=== PATIENT | male | born 1975 | race Caucasian/White ===

== ENCOUNTER 2019-11-13 09:33 | Outpatient (REF) | payer OTHER, SELFPAY ==
[2019-11-13 23:10] LABS: ALT 77 U/L (16-63); AST 33 U/L (15-37); Albumin 4.4 g/dL (3.4-5.0); Alkaline Phosphatase 84 U/L (46-116); Anion Gap 9.4 mmol/L (3-11); BUN 14 mg/dL (7-18); Bilirubin, Total 0.4 mg/dL (0.2-1.0); CO2 26.6 mmol/L (21.0-32.0); CREATININE 0.88 mg/dL (0.70-1.30); Calculated LDL 122 mg/dL (<100); Chloride 104 mmol/L (98-107); Cholesterol 187 mg/dL (<200); Glucose 110 mg/dL (74-106); HDL Cholesterol 43 mg/dL (40-60); Potassium 4.5 mmol/L (3.5-5.1); Sodium 140 mmol/L (136-145); Triglyceride 110 mg/dL (<150)
[2019-11-14 00:12] LABS: Total Protein 7.7 g/dL (6.4-8.2)
== END 2019-11-13 09:53 ==
LOC: NCHCN 09:33
PROVIDERS: PCP Family Medicine; Visit Provider Family Medicine
DX: E78.5 Hyperlipidemia, unspecified (principal); E66.3 Overweight
CPT/HCPCS: 80053; 80061

== ENCOUNTER 2020-11-06 10:29 | Outpatient (REF) | payer OTHER, SELFPAY ==
[2020-11-06 14:33] LABS: ALT 60 U/L (16-63); AST 23 U/L (15-37); Albumin 4.2 g/dL (3.4-5.0); Alkaline Phosphatase 93 U/L (46-116); Anion Gap 6.7 mmol/L (3-11); BUN 13 mg/dL (7-18); Bilirubin, Total 0.5 mg/dL (0.2-1.0); CO2 30.3 mmol/L (21.0-32.0); CREATININE 0.9 mg/dL (0.70-1.30); Calcium 8.9 mg/dL (8.5-10.1); Calculated LDL 94 mg/dL (<100); Chloride 105 mmol/L (98-107); Cholesterol 150 mg/dL (<200); Glucose 97 mg/dL (74-106); HDL Cholesterol 43 mg/dL (40-60); Potassium 4.6 mmol/L (3.5-5.1); Sodium 142 mmol/L (136-145); Total Protein 7.8 g/dL (6.4-8.2); Triglyceride 68 mg/dL (<150)
== END 2020-11-06 10:30 | disposition home or self-care (01) ==
LOC: NCHCN 10:29
PROVIDERS: PCP Family Medicine; Visit Provider Family Medicine
DX: E78.5 Hyperlipidemia, unspecified (principal); E66.3 Overweight; R03.0 Elevated blood-pressure reading, without diagnosis of hypertension
CPT/HCPCS: 80053; 80061

== ENCOUNTER 2021-06-18 00:50 | Outpatient (CLI) | payer OTHER, SELFPAY ==
--- NOTE | 2021-06-18 | DI.CT_ITS ---
Exam(s) CT NECK W EXAM: CT NECK W CLINICAL HISTORY: NECK MASS, R22.1. TECHNIQUE: Imaging Protocol: Axial computed tomography images with coronal and sagittal reformatted images were created and reviewed. CONTRAST MATERIAL: Intravenous: Omnipaque 350 Contrast volume:100 ml contrast route:IV - COMPARISON: No exams were available for comparison FINDINGS: A BB marker was placed over the area of concern at the junction of the left neck with the shoulder. No abnormalities seen. There is no evidence of adenopathy. There is no visible skin thickening. Orbits and orbital soft tissues: Within normal limits. Visualized paranasal sinuses: Within normal limits. Mastoid air cells: Within normal limits. Nasopharynx: Within normal limits. Oropharynx: Within normal limits. Hypopharynx: Within normal limits. Larynx: Within normal limits. Retropharyngeal space: Within normal limits. Parotids/submandibular: Within normal limits. Thyroid gland: Within normal limits. Lymphadenopathy: There is scattered lymph nodes seen along the level one to level three all measurin g less than 8 mm in short axis diameter which are physiologic in nature. Trachea: Within normal limits. Lung apices: Within normal limits. Bones: Within normal limits. Carotids/Jugular: Within normal limits. Soft tissues: Within normal limits. IMPRESSION: Normal CT scan of the neck. No visible mass in the area of concern. RADIATION DOSE DELIVERED: 406.14mGy.cm Total DLP 406.14mGy.cm Total DLP DATA REPOSITORY: All CT scans at this facility are submitted to the National Radiology Data Registry (NRDR) Dose Index Registry (DIR) with the [employer] (ACR). RADIATION OPTIMIZATION: All CT scans at this facility use at least one of these dose optimization te chniques: automated exposure control; mA and/or kV adjustment per patient size (includes targeted exa ms where dose is matched to clinical indication); or iterative reconstruction.
[2021-06-18] MEDS: Omnipaque 350 MG/ML 100 ML BTL IJ (08:52)
[2021-06-18] MEDS: Normal Saline Flush 10 ML SYR IVP (08:53)
== END 2021-06-18 01:10 ==
PROVIDERS: PCP Family Medicine; Visit Provider Family Medicine
DX: R22.1 Localized swelling, mass and lump, neck (principal)
CPT/HCPCS: 70491; J3490

== ENCOUNTER 2021-11-14 18:54 | Outpatient (REF) | payer OTHER, SELFPAY ==
[2021-11-14 20:35] LABS: ALT 74 U/L (16-63); AST 27 U/L (15-37); Albumin 4.4 g/dL (3.4-5.0); Alkaline Phosphatase 93 U/L (46-116); Anion Gap 9.2 mmol/L (3-11); BUN 17 mg/dL (7-18); Bilirubin, Total 0.3 mg/dL (0.2-1.0); CO2 27.8 mmol/L (21.0-32.0); CREATININE 0.8 mg/dL (0.70-1.30); Calcium 9.4 mg/dL (8.5-10.1); Chloride 102 mmol/L (98-107); Estimated GFR 111.22 (mL/min/1.73m2); Glucose 92 mg/dL (74-106); Potassium 4.5 mmol/L (3.5-5.1); Sodium 139 mmol/L (136-145); Total Protein 8.1 g/dL (6.4-8.2)
[2021-11-14 21:39] LABS: Calculated LDL 137 mg/dL (<100); Cholesterol 207 mg/dL (<200); HDL Cholesterol 51 mg/dL (40-60); Triglyceride 97 mg/dL (<150)
== END 2021-11-14 18:55 | disposition home or self-care (01) ==
LOC: NCHCN 18:54
PROVIDERS: PCP Family Medicine; Visit Provider Family Medicine
DX: E78.5 Hyperlipidemia, unspecified (principal)
CPT/HCPCS: 80053; 80061

== ENCOUNTER 2023-01-01 07:02 | Day surgery (SDC) | payer OTHER, SELFPAY ==
--- NOTE | 2022-12-31 12:31 | W.COLOREPORT ---
Date of service: 01/01/23 Time of Service: 08:59 Colonoscopy Report Date of procedure: 01/01/23 Pre-op diagnosis general: Colorectal cancer screening Post-op diagnosis procedure note: other (Small diverticula of the sigmoid colon/large colon polyp) Surgeon: Loreto Cameron Anesthesia Type: MAC Estimated blood loss (mL): 2 Pathology: other Complications: None Disposition: same day Prep: Miralax/Dulcolax Retraction Time: 11 Procedure Description: After informed consent was obtained the patient was taken to the procedure room and placed in a left decubitous position. Monitors were applied and a time out was done. The patients name, date of , procedure, allergies to medications and metal in their body was reviewed. The patient was then sedated. Once sedated and comfortable a rectal exam was done. External exam was normal. Internal exam revealed a normal sphincter tone and no palpable masses. The prostate normal. The scope was then introduced and retrofelexed. No internal hemorrhoids were identified. The scope was then advanced to the cecum without difficulty. The TI and appendiceal orifice were identified. The prep was BBPS 3 in all segments for a total of 9. The scope was then slowly retracted over 11 minutes back into the rectum. He has minor diverticula confined to the sigmoid. There is no signs of active bleeding or infection. the diverticula are very small in size. He has a large 2 cm polyp on a long thin stalk at 30 cm. This is removed with a hot snare. A clip was placed across the stalk. All specimen is retrieved and no bleeding is noted. The scope was removed and the patient was woken up and taken back to Same day surgery in stable condition. The patient tolerated the procedure well and there were no immediate complications. Follow up: The patient should follow up in ~2 years unless they develop changes in bowel habits or other new gastrointestinal complaints.
--- NOTE | 2022-12-31 12:32 | PDOC.DSDIS_ITS ---
Date of service: 01/01/23 Time of Service: 09:04 Discharge Plan Disposition Patient Disposition: Home Condition: Good Discharge Details Reason For Visit: Colon cancer screening Attending Provider: Loreto Cameron Primary Care Provider: Joelle Horton Home Meds and New Rx's Prescriptions: Continued lisinopril 10 mg tablet 10 mg PO DAILY atorvastatin [Lipitor] 20 mg tablet 20 mg PO QPM cholecalciferol (vitamin D3) 10 mcg (400 unit) capsule 10 mcg PO DAILY Discontinued bisacodyl [Dulcolax (bisacodyl)] 5 mg tablet,delayed release (DR/EC) 5 mg PO ONCE Qty: 4 0RF Rx Instructions: Take per colonoscopy instructions provided by ordering providers office polyethylene glycol 3350 17 gram/dose powder 17 g PO ONCE Qty: 238 0RF Rx Instructions: Take per colonoscopy instructions provided by ordering providers office Discharge Instructions Additional Instructions: DSU Colonoscopy Post- Op Instructions Instructions for Everyone who is given Anesthesia: For your safety, please do the following for the next twenty-four (24) hours: *Do Not operate a motor vehicle (car, truck, motorcycle, etc.) *Do Not drink alcoholic beverages or use any recreational drugs for the first 24 hours or while taking pain medications. The medications in your body may have a reaction that can be dangerous. *Do Not make any important decisions or sign any important papers. Findings: diverticula-make sure you are moving your bowels on a regular basis and not straining to go to the bathroom. If you find you are having issues with chronic constipation/straining, then it is recommended you start a fiber product such as Metamucil. Large polyp Follow up: Repeat colonoscopy in 1 to 2 years time, pathology pending. My office will send a letter in 2 to 3 weeks time with the results of the pathology and when we want you to repeat the colonoscopy. 1. No lifting over 20 pounds or strenuous activity for the first 24 hours after your procedure. After 24 hours there are no restrictions on your activity but you may feel fatigued for a few days. 2. After you arrive home you may have a light meal and return to your normal diet as you can tolerate it without feeling sick to your stomach. 3. You may have a bloated, gaseous feeling in your belly (abdomen) after a colonoscopy. Passing gas and belching will help. Walking or lying down on your left side with your knees flexed may relieve the discomfort. Call the office at [phone] (Office) or [phone] (Hospital) right away if you notice any of the following: a.Vomiting of blood or ?coffee ground stools?. b.Rectal bleeding 1Tbsp, blood clots or continuous bleeding. c.Severe belly (abdominal) pain. d.A hard distended belly (abdomen) and an inability to pass gas. 4. Please don?t expect to have a normal BM (bowel movement) for 2-3 days after your procedure. 5. If there are questions regarding the findings of your procedure, please contact your doctor 6. If you are unable to contact your doctor with a problem, contact the hospital at [phone]. 7. Continue all your regular medications unless directed otherwise. I understand the above instructions and have no questions. Signature of Patient or Adult Escort Name of Responsible Adult Escort Signature of Nurse Date/Time Activity:: See above Diet:: See above Discharge Orders Discharge Orders: Discharge Order (Routine); Ordered 01/01/23 Ordered By: Loreto Cameron DS: Diagnosis Discharge Diagnosis (1) Screening for malignant neoplasm of colon performed: Status: Acute Asessment and Plan: The patient is seen and examined after their colonoscopy.? The patient has been able to pass gas.? They are not having abdominal pain.? They have been able to tolerate liquids and a snack.? They do not have any nausea or vomiting.? They are not having any chest pain or shortness of breath.??? They are not having any rectal bleeding. Their vital signs have been stable-see nursing notes. We discussed findings during their colonoscopy, and any biopsies that were done /polyps that were removed. The patient will be sent a letter with any biopsy results, and when to repeat the colonoscopy.-see discharge instructions. Patient was given explicit instructions to follow-up regarding colonoscopy-refer to discharge instructions.? We reviewed resumption of medications. Patient verbalized understanding and discharged in stable and satisfactory condition- See nursing notes. (2) Diverticula of colon: Status: Acute (3) Adenomatous polyps: Status: Acute
[2023-01-01 07:25] VITALS: BP 137/96; PULSE 90; RESP 16; TEMP 36.5; O2SAT 98
[2023-01-01] MEDS: Lactated Ringers 1,000 ML 80 ML IV (07:43)
--- NOTE | 2023-01-01 08:18 | ANES.PREOP_ITS ---
General Info Date of Service Date Performed: 01/01/23 Height: 5 ft 10 in Weight: 99.5 kg Body Mass Index (BMI): 31.4 Surgical Procedure: Operation Date: 01/01/23 08:20 Proposed Procedure Side Surgeon sarwat Cameron, DO Meds Allergies and Home Medications Allergies Allergy/AdvReac Type Severity Reaction Status Date / Time No Known Allergies Allergy Unverified 01/01/23 07:22 Home Medication Medication Instructions Recorded atorvastatin 20 mg tablet (Lipitor) 20 mg PO QPM 12/03/22 cholecalciferol (vitamin D3) 10 10 mcg PO DAILY 12/03/22 mcg (400 unit) capsule lisinopril 10 mg tablet 10 mg PO DAILY 12/03/22 bisacodyl 5 mg tablet,delayed 5 mg PO ONCE #4 tabs 12/17/22 release (Dulcolax (bisacodyl)) polyethylene glycol 3350 17 17 g PO ONCE #238 grams 12/17/22 gram/dose oral powder Current Visit Medications: Current Medications Generic Name Dose Route Start Last Admin Trade Name Freq PRN Reason Stop Dose Admin Hyoscyamine Sulfate 0.125 mg 01/01/23 10:59 Hyoscyamine 0.125 Mg Sl/Oral/Chew SL 01/31/23 10:58 DIRECTED PRN Ringer's Solution 1,000 mls @ 80 mls/hr 01/01/23 06:00 01/01/23 07:43 IV 01/30/23 23:59 80 mls/hr INFUSION MILAGRO Administration IV Miscellaneous Supplies 1 each 01/01/23 06:00 Iv Access IV 01/30/23 23:59 DIRECTED MILAGRO Ondansetron HCl 4 mg 01/01/23 10:59 Ondansetron 4 Mg/2 Ml Vial IVP 01/31/23 10:58 Q4H PRN PRN Nausea / Vomiting Sodium Chloride 0 ml 01/01/23 06:00 Normal Saline Flush 10 Ml Syr IV 01/30/23 23:59 PRN PRN Sodium Chloride 0 ml 01/01/23 06:00 Normal Saline 10 Ml Vial IJ 01/30/23 23:59 DIRECTED PRN Sterile Water 0 ml 01/01/23 06:00 Water,Injection,Sterile 10 Ml Vial IJ 01/30/23 23:59 DIRECTED PRN PFSH Active Problems Active Problems: Problem Status Onset Code Screening for malignant neoplasm of colon performed Z12.11 Medical History Medical History Hyperlipidemia HTN (hypertension) Lumbago with sciatica, left side Surgical History Surgical History (Updated 01/01/23 @ 07:28 by Areli Conley RN) B[place]ow teeth extracted Tobacco Smoking/Tobacco Use Status: Never Alcohol Alcohol Intake: current Alcohol intake frequency: a few times a week Alcohol type: beer Substance Use Substance use: Socially Substance use type: marijuana Vital Signs and Lab Results Vital Signs Most Recent Vital Signs in EMR: Most Recent Vital Signs Temp Pulse Resp BP Pulse Ox 36.5 C 90 16 137/96 H 98 01/01/23 07:25 01/01/23 07:25 01/01/23 07:25 01/01/23 07:25 01/01/23 07:25 Lab Results Blood Type / Crossmatch: No Data to Display Complete Blood Count: No Data to Display Complete Metabolic Panel: No Data to Display Liver Function Panel: 2 No Data to Display Coagulation Panel: No Data to Display Cardiac Panel: No Data to Display Arterial Blood Gas: No Data to Display Venous Blood Gas: No Data to Display Pancreas Panel: No Data to Display Thyroid Panel: No Data to Display Infectious Disease: No Data to Display Blood Cultures: No Data to Display Toxicology Panel: No Data to Display Anesthesia Assessment and Plan Anesthesia History Personal History: No History of Anesthesia Complications Family History: No Family History of Anesthesia Complications Exercise Tolerance Exercise Tolerance: Metabolic Equivalents>4 Pertinent Negatives Pertinent Negatives: No Symptoms of GERD Cardiac & Pulmonary Exam Cardiac Exam: Normal S1/S2 Heart Sounds Pulmonary Exam: Clear Bilateral Breath Sounds Implantable Cardiac Device Does patient have a Pacemaker or an ICD?: No Airway Exam Known Difficult Airway: No Mallampati Class: 2 Mouth Opening: Normal (> 3cm) Thyromental Distance: Greater than 3 cm Neck Range of Motion: Full ROM Neck Circumference: Normal Teeth Condition: Normal Dentition ASA Classification ASA Score: ASA 2 Emergency Case?: No NPO Status NPO Status: NPO Clears >2 hours, Solids >8 hours Anesthesia Plan Resuscitation Status: Full Code Anesthesia Technique: General Anesthesia Airway Planned: Natural Airway Monitors Used: Standard Monitors
[2023-01-01 08:19] VITALS: BMI 31.4
--- NOTE | 2023-01-01 08:45 | BOWEL_PTH ---
PATIENT: Cr Bush LOC: [facility] U#:[id number] AGE/SX: 47/M ROOM: RE01/01/[address]: Loreto Cameron : 1975 BED: DIS: 01/01/2023 SPEC #: [id number] RECD: 01/01/23 10:53 STATUS: REYNOLD REQ #: [id number] GAYLE: 01/01/23 08:[address]: Loreto Cameron DEPT: Surgical Specimen RECD BY: Griselda oCnley ENTERED: 01/01/23 10:53 SP TYPE: Bowel OTHR DR: Joelle Horton Tissues: 1 - BIOPSY BOWEL Procedures: GROSS AND MICRO LEVEL 4 Comments: [id number]
[2023-01-01 08:55] VITALS: BP 115/84; PULSE 83; RESP 16; TEMP 36.2; O2SAT 91
--- NOTE | 2023-01-01 09:03 | W.ANESPOSTOP ---
Postoperative Evaluation Date, Time and Location Date Performed: 01/01/23 Time Performed: 09:03 Patient Location: Day Surgery Unit Vital Signs Most Recent Imported Vital Signs: Most Recent Vital Signs Temp Pulse Resp BP Pulse Ox 36.2 C L 83 16 115/84 91 L 01/01/23 08:55 01/01/23 08:55 01/01/23 08:55 01/01/23 08:55 01/01/23 08:55 Pain Score Most Recent Pain Score: Most Recent Pain Score Pain Level 0 01/01/23 08:55 Assessment Mental Status: Awake (Alert & Oriented to Patient Baseline) Airway and Respiratory Function: Patent airway with normal (patient baseline) respiratory exam Cardiovascular Function: Hemodynamically Stable Hydration Status: Adequately Hydrated Nausea & Vomiting: No Nausea or Vomiting Pain: Pt. Denies Any Pain Peripheral Nerve Block: Patient did not receive a nerve block
[2023-01-01 09:25] VITALS: BP 123/89; PULSE 79; RESP 16; TEMP 36.5; O2SAT 98
== END 2023-01-01 10:15 | disposition home or self-care (01) ==
PROVIDERS: PCP Family Medicine; Visit Provider Surgery
PROC: 0DJD8ZZ Inspection of Lower Intestinal Tract, Via Natural or Artificial Opening Endoscopic (ICD-10-PCS; CPT 45378; principal; 2023-01-01 08:15)
DX: Z12.11 Encounter for screening for malignant neoplasm of colon (principal); K63.5 Polyp of colon; K57.30 Diverticulosis of large intestine without perforation or abscess without bleeding; I10 Essential (primary) hypertension
CPT/HCPCS: 45385; 88305

== ENCOUNTER 2023-08-10 12:25 | Outpatient (REF) | payer OTHER, SELFPAY ==
[2023-08-10 15:22] LABS: Calculated LDL 96 mg/dL (<100); Cholesterol 160 mg/dL (<200); HDL Cholesterol 43 mg/dL (40-60); Triglyceride 107 mg/dL (<150); Vitamin D 25 Total 15.2 ng/mL (30-100)
[2023-08-11 14:57] LABS: ALT 88 U/L (16-63); AST 41 U/L (15-37); Albumin 4.4 g/dL (3.4-5.0); Alkaline Phosphatase 99 U/L (46-116); Anion Gap 10.9 mmol/L (3-11); BUN 15 mg/dL (7-18); Bilirubin, Total 0.39 mg/dL (0.2-1.0); CO2 27.1 mmol/L (21.0-32.0); CREATININE 0.9 mg/dL (0.70-1.30); Calcium 9.3 mg/dL (8.5-10.1); Chloride 103 mmol/L (98-107); Estimated GFR 106.67 (mL/min/1.73m2); Glucose 112 mg/dL (74-106); Potassium 4.6 mmol/L (3.5-5.1); Sodium 141 mmol/L (136-145); Total Protein 7.8 g/dL (6.4-8.2)
== END 2023-08-10 12:26 | disposition home or self-care (01) ==
LOC: NCHCN 12:25
PROVIDERS: PCP Family Medicine; Visit Provider Family Medicine
DX: Z00.00 Encounter for general adult medical examination without abnormal findings (principal); I10 Essential (primary) hypertension; E78.5 Hyperlipidemia, unspecified; E55.9 Vitamin D deficiency, unspecified; R79.89 Other specified abnormal findings of blood chemistry
CPT/HCPCS: 80053; 80061; 82306

== ENCOUNTER 2024-05-12 09:09 | Emergency (ER) | payer OTHER, SELFPAY ==
[2024-05-12 09:12] VITALS: BP 167/110; PULSE 59; RESP 17; TEMP 36.8; O2SAT 96
[2024-05-12 09:17] VITALS: BP 167/110; PULSE 59; RESP 17; TEMP 36.8; O2SAT 96
[2024-05-12 09:44] LABS: Abs Immature Grans 0.02 10^3/uL (0.0-0.06); Absolute Basophil Count 0.04 10^3/uL (0.0-0.2); Absolute Eosinophil Count 0.06 10^3/uL (0.0-0.7); Absolute Lymphocyte Count 1.09 10^3/uL (1.2-3.4); Absolute Monocyte Count 0.24 10^3/uL (0.1-0.8); Absolute Neutrophil Count 3.91 10^3/uL (1.2-6.7); Basophils % 0.7 %; Eosinophils % 1.1 %; HCT 40.6 % (40.0-50.0); HGB 13.6 g/dL (13.5-17.5); Immature Grans % 0.4 %; Lymphocytes % 20.3 %; MCH 28.8 pg (27.0-33.0); MCHC 33.5 % (32.0-36.0); MCV 86 fL (80-95); MPV 9.5 fL (8.0-11.0); Monocytes % 4.5 %; Platelet Count 193 10^3/uL (130-400); RBC 4.73 10^6/uL (4.36-5.78); RDW 11.8 % (11.8-14.1); RDW-SD 37.1 fL; WBC 5.36 10^3/uL (4.4-10.8)
[2024-05-12] MEDS: Ondansetron 4 MG/2 ML VIAL IVP (09:46)
[2024-05-12] MEDS: Ketorolac 15 MG/ML VIAL 7.5 MG IVP (09:47)
[2024-05-12 10:00] LABS: ALT 70 U/L (16-63); AST 23 U/L (15-37); Alkaline Phosphatase 90 U/L (46-116); Anion Gap 6.9 mmol/L (3-11); BUN 17 mg/dL (7-18); Bilirubin, Total 0.3 mg/dL (0.2-1.0); CO2 29.1 mmol/L (21.0-32.0); CREATININE 0.9 mg/dL (0.70-1.30); Calcium 8.9 mg/dL (8.5-10.1); Chloride 105 mmol/L (98-107); Estimated GFR 106.01 (mL/min/1.73m2); Glucose 154 mg/dL (74-106); Lipase 30 U/L (<78); Potassium 4.1 mmol/L (3.5-5.1); Sodium 141 mmol/L (136-145); Total Protein 7.7 g/dL (6.4-8.2)
[2024-05-12 10:06] LABS: Bilirubin Negative (Negative); Blood Large (Negative); Clarity Sl Cloudy (Clear); Glucose Negative (Negative); Ketones Negative (Negative); Leukocyte Esterase Negative (Negative); Nitrite Negative (Negative); Specific Gravity >= 1.030 (1.005-1.025); Urobilinogen 0.2 mg/dL (Up to 0.2); pH 5.5 (5-8)
[2024-05-12 10:16] LABS: Bacteria Few HPF (Negative); C & S Indicated? No; Casts Negative LPF (Negative); Crystals Negative HPF (Negative); Epithelial Cells Negative HPF (Negative); Mucus Moderate (Negative); RBC >50 HPF (0-2); WBC 0-2 HPF (0-5)
--- NOTE | 2024-05-12 10:20 | DI.CT_ITS ---
Exam(s) CT ABDOMEN PELVIS WO EXAM: CT ABDOMEN PELVIS WO CLINICAL HISTORY: right flank pain with radiation to groin. TECHNIQUE: Imaging Protocol: Axial computed tomography images with coronal and sagittal reformatted images were created and reviewed CONTRAST MATERIAL: Intravenous: none Oral: None COMPARISON: No exams were available for comparison FINDINGS: VISUALIZED LUNG BASES: No significant nodules nor pleural effusions evident. Tiny calcified granulom a noted in the right lung base. ABDOMEN: There is no ascites. LIVER: There are no obvious focal hepatic lesions evident of this noninfused study. GALLBLADDER/BILIARY: No obvious gallbladder pathology. CBD is not dilated. PANCREAS: No evidence of pancreatic mass nor dilatation of the pancreatic duct. SPLEEN: Spleen is not enlarged. No obvious intrasplenic lesions. ADRENALS: There are no significant adrenal masses. KIDNEYS: There is symmetrical perinephric streaking bilaterally. No focal left kidney findings. On the right side there is slight dilatation of the renal pelvis and right ureter throughout its length. . There is no radiopaque calculus evident in the ureter nor within the nondistended urinary bladder. ABDOMINAL AORTA: Abdominal aorta is not enlarged. LYMPH NODES: There is no retroperitoneal nor paraaortic adenopathy. ABDOMINAL WALL: No evidence of significant anterior abdominal wall nor inguinal hernia. GI: There is no evidence of bowel obstruction, free air, nor abscess. PELVIS: LYMPH NODES: There is no intrapelvic nor inguinal adenopathy. GI: No evidence of appendicitis.There are sigmoid diverticuli. One of diverticuli exhibits very mini mal streaking. This is on the superior wall of the sigmoid (series 3/image 19). URINARY BLADDER: No calculi nor obvious masses evident REPRODUCTIVE: Prostate size upper normal. Seminal vesicles unremarkable. OSSEOUS: No significant osseous lesions. No fractures. Sacroiliac joints unremarkable. IMPRESSION: 1. There is slight dilatation of the right renal collecting system as described above. However, ther e is no radiopaque calculus evident in the right ureter nor within the urinary bladder. There is als o no evidence of nephrolithiasis. Possible recently passed calculus on the right side. 2. No evidence of acute appendicitis. 3. There are diverticuli in the sigmoid. One of these diverticuli exhibits some very mild surroundin g fat stranding. Cannot exclude very subtle diverticulitis.. Findings discussed with ER provider 05/12/2024 11:04 a.m. RADIATION DOSE DELIVERED: 754.49mGy.cm Total DLP DATA REPOSITORY: All CT scans at this facility are submitted to the National Radiology Data Registry (NRDR) Dose Index Registry (DIR) with the [employer] (ACR). RADIATION OPTIMIZATION: All CT scans at this facility use at least one of these dose optimization te chniques: automated exposure control; mA and/or kV adjustment per patient size (includes targeted exa ms where dose is matched to clinical indication); or iterative reconstruction.
[2024-05-12 11:13] VITALS: BP 131/83; PULSE 57; RESP 21; TEMP 36.6; O2SAT 97
--- NOTE | 2024-05-12 11:38 | W.ED.GENAD ---
Discharge Plan Disposition Patient Disposition: Home Condition: Stable Discharge Details Clinical Impression: Ureterolithiasis Primary Care Provider: Joelle Horton ED Provider: Griselda Batista Home Meds and New Rx's Prescriptions: Continued lisinopril 10 mg tablet 10 mg PO DAILY atorvastatin [Lipitor] 20 mg tablet 20 mg PO QPM Discharge Instructions Instructions: Kidney Stone, Adult ED, Kidney stone diet Additional Instructions: You have passed the kidney stone and there is no visible remaining stone on your CT scan Please follow-up with urology and you may review stone analysis Please return earlier should you have return of nausea vomiting or with any new or worsening symptoms Please have your doctor recheck a urinalysis to be sure the blood has resolved in the next month or 2 Referrals: Ambrocio Echeverria MD [ [facility] STAFF PHYSICIAN] - 2 weeks HPI General Date/Time Provider Initiated Documentation: 05/12/24 09:25. HPI Narrative: 48-year-old male with right flank and lower quadrant pain starting this morning. Reports dysuria yesterday, no history of similar symptoms or trauma. No fever, chills, chest pain, or shortness of breath. Reports nausea. Related Data Home Medications ?Medication ?Instructions ?Recorded ?Confirmed atorvastatin 20 mg tablet (Lipitor) 20 mg PO QPM 12/03/22 05/12/24 lisinopril 10 mg tablet 10 mg PO DAILY 12/03/22 05/12/24 Allergies Allergy/AdvReac Type Severity Reaction Status Date / Time No Known Allergies Allergy Unverified 05/12/24 09:16 General Stated Complaint: Abd Prob RANDI: 3 Exam Narrative Exam Narrative: General Appearance: Alert and oriented, pale and uncomfortable. Vital signs: Within normal limits. HEENT: Within normal limits. Respiratory: Lungs clear to auscultation. Gastrointestinal: Mild tenderness in right upper and lower quadrants without rebound or guarding. No abdominal bruit or pulsatile masses. Back, Musculoskeletal: Reproducible CVA tenderness. Extremities: Distal pulses intact. Skin: Warm and dry, no rash. Neurological: Normal. Course Vital Signs Vital signs: Vital Signs Temperature 36.8 C 05/12/24 09:12 Pulse 59 L 05/12/24 09:12 Respiratory Rate 17 05/12/24 09:12 Blood Pressure 167/110 H 05/12/24 09:12 Pulse Oximetry 96 05/12/24 09:12 Temperature 36.6 C 05/12/24 11:13 Temperature Source Axillary 05/12/24 11:13 Pulse 57 L 05/12/24 11:13 Respiratory Rate 21 05/12/24 11:13 Blood Pressure 131/83 05/12/24 11:13 Blood Pressure Position Sitting 05/12/24 09:17 Pulse Oximetry 97 05/12/24 11:13 Oxygen Delivery Method Room Air 05/12/24 11:13 Oxygen Flow Rate 0 05/12/24 11:13 Pain Level 7 05/12/24 09:17 Lab/Test Results Lab/Test Results: Laboratory Tests Range/Units 05/12/24 05/12/24 09:38 09:47 WBC (4.4-10.8) 10^3/uL 5.36 RBC (4.36-5.78) 10^6/uL 4.73 Hgb (13.5-17.5) g/dL 13.6 Hct (40.0-50.0) % 40.6 MCV (80-95) fL 86 MCH (27.0-33.0) pg 28.8 MCHC (32.0-36.0) % 33.5 RDW (11.8-14.1) % 11.8 Plt Count (130-400) 10^3/uL 193 MPV (8.0-11.0) fL 9.5 Immature Gran % % 0.4 Neutrophils % % 73.0 Lymphocytes % % 20.3 Monocytes % % 4.5 Eosinophils % % 1.1 Basophils % % 0.7 Nucleated RBC % (0.0-0.3) % 0.0 Absolute Neutrophils (1.2-6.7) 10^3/uL 3.91 Absolute Lymphocytes (1.2-3.4) 10^3/uL 1.09 L Absolute Monocytes (0.1-0.8) 10^3/uL 0.24 Absolute Eosinophils (0.0-0.7) 10^3/uL 0.06 Absolute Basophils (0.0-0.2) 10^3/uL 0.04 Sodium (136-145) mmol/L 141 Potassium (3.5-5.1) mmol/L 4.1 Chloride (98-107) mmol/L 105 Carbon Dioxide (21.0-32.0) mmol/L 29.1 Anion Gap (3-11) mmol/L 6.9 BUN (7-18) mg/dL 17 Creatinine (0.70-1.30) mg/dL 0.9 Est GFR (CKD-EPI 2020) (mL/min/1.73m2) 106.01 Glucose (74-106) mg/dL 154 H Calcium (8.5-10.1) mg/dL 8.9 Total Bilirubin (0.2-1.0) mg/dL 0.3 AST (15-37) U/L 23 ALT (16-63) U/L 70 H Alkaline Phosphatase (46-116) U/L 90 Total Protein (6.4-8.2) g/dL 7.7 Albumin (3.4-5.0) g/dL 4.0 Lipase (<78) U/L 30 Urine Color (Yellow) Yellow Urine Clarity (Clear) Sl Cloudy Urine pH (5-8) 5.5 Ur Specific [place] (1.005-1.025) >= 1.030 H Urine Protein (Neg-Trace) mg/dL 30 H Urine Ketones (Negative) mg/dL Negative Urine Blood (Negative) Large H Urine Nitrite (Negative) Negative Urine Bilirubin (Negative) Negative Urine Urobilinogen (Up to 0.2) mg/dL 0.2 Ur Leukocyte Esterase (Negative) Negative Urine RBC (0-2) HPF >50 H Urine WBC (0-5) HPF 0-2 Ur Epithelial Cells (Negative) HPF Negative Urine Crystals (Negative) HPF Negative Urine Bacteria (Negative) HPF Few Urine Casts (Negative) LPF Negative Urine Mucus (Negative) Moderate Ur Culture Indicated? No Urine Glucose (Negative) mg/dL Negative Medical Decision Making Initial Assessment: 48-year-old male with right flank and lower quadrant pain starting this morning, dysuria yesterday, no fever or chills, nausea, no history of similar symptoms or trauma, alert and oriented, pale and uncomfortable, reproducible CVA tenderness, mild right upper and lower quadrant tenderness without rebound or guarding, lungs clear to auscultation. Differential Diagnosis: - Kidney stone: Blood in urine, stone noted by lab, passed stone in ED, dilated ureter on CT, no elevation in creatinine, no evidence of infected stone, follow-up with urology. - Diverticulitis: Possible evidence on CT, benign abdominal exam, no tenderness, no indication for antibiotics, close outpatient reassessment. ED Course: - Glucose 154. - ALT 70. - Urinalysis shows blood. - Stone noted by lab. - No elevation in creatinine. - No evidence of infected stone. - CT shows dilated ureter, no stone. - Passed stone in ED. - Discussed case with radiologist regarding dilated ureter on the right. Final Assessment: Patient with right flank and lower quadrant pain, dysuria, and nausea. Passed kidney stone in ED, dilated ureter on CT, possible diverticulitis but benign abdominal exam. No indication for antibiotics. Stable vitals, asymptomatic. Clinical Impression: - Kidney stone - Possible diverticulitis Disposition: - Discharge: Discharged home in stable condition. - Follow-Up: Referral to urology, urine recheck by PCP to ensure resolution of blood. MDM Components Evaluation: - Number of Differential Diagnoses or Management Options: Kidney stone, possible diverticulitis. - Amount and Complexity of Data Reviewed: Glucose, ALT, urinalysis, CT scan, discussion with radiologist. - Risk of Complication and Morbidity or Mortality: Low risk based on stable vitals and asymptomatic condition. Quality:SDOH Health Related Social Needs: No Data to Display PFSH All Active Problems (Updated 05/12/24 @ 11:09 by ROHITH Fonseca) Ureterolithiasis (Acute) Adenomatous polyps (Acute ~01/01/23) inflammatory, repeat 5 yrs R/T size Diverticula of colon (Acute) Screening for malignant neoplasm of colon performed (Acute) Medical History (Updated 05/12/24 @ 11:09 by ROHITH Fonseca) Hyperlipidemia HTN (hypertension) Lumbago with sciatica, left side Surgical History (Updated 01/01/23 @ 15:09 by Jessica Holley) History of colonoscopy (~12/2022) biopsies sent [place] teeth extracted Social History (Updated 12/17/22 @ 10:02 by ROHITH Hairston) Smoking/Tobacco Use Status: Never Smoking risk assessment performed?: Yes Alcohol Intake: current Alcohol Intake frequency: a few times a week Alcohol type: beer Drug use: Socially Substance use type: marijuana Housing: house Current gender identity: male Do you feel safe at home: Yes Do you feel safe in your relationship?: Yes PAWSS Have you Been Recently Intoxicated or Drunk Within the Last 30 days?: No Have you Ever Experienced Previous Episodes of Alcohol Withdrawal?: No Have you ever Experienced Withdrawal Seizures?: No Have you ever Experienced Delirium Tremens(DT)s?: No Have you ever undergone Alcohol Rehabilitation Treatment (i.e, inpt ot outpatient treatment programs)?: No Have you ever Experienced Blackouts?: No Have you ever Combined Alcohol with other Downers within the last 90 days?: No Have you ever Combined Alcohol with any other Substance of Abuse during the last 90 days?: No Result: 0
[2024-05-25 15:33] LABS: Source: Passed Stone
== END 2024-05-12 11:38 | disposition home or self-care (01) ==
PROVIDERS: Emergency Provider Physician Assistant; PCP Family Medicine
DX: N20.1 Calculus of ureter (principal); I10 Essential (primary) hypertension; E78.5 Hyperlipidemia, unspecified
CPT/HCPCS: 36415; 80053; 83690; 96374; 96375; 99284; 74176; 81003; 81015; 82365; 85025; J1885; J2405

== ENCOUNTER 2024-08-31 08:13 | Outpatient (REF) | payer OTHER, SELFPAY ==
[2024-08-31 16:48] LABS: ALT 120 U/L (16-63); AST 125 U/L (15-37); Albumin 4.3 g/dL (3.4-5.0); Alkaline Phosphatase 93 U/L (46-116); Anion Gap 10.3 mmol/L (3-11); BUN 21 mg/dL (7-18); Bilirubin, Total 0.6 mg/dL (0.2-1.0); CO2 25.7 mmol/L (21.0-32.0); Calcium 9.3 mg/dL (8.5-10.1); Calculated LDL 109 mg/dL (<100); Chloride 102 mmol/L (98-107); Cholesterol 175 mg/dL (<200); Estimated GFR 109.17 (mL/min/1.73m2); Glucose 102 mg/dL (74-106); HDL Cholesterol 44 mg/dL (>or=40); Potassium 4.2 mmol/L (3.5-5.1); Sodium 138 mmol/L (136-145); Total Protein 7.6 g/dL (6.4-8.2); Triglyceride 111 mg/dL (<150)
== END 2024-08-31 08:14 | disposition home or self-care (01) ==
LOC: NCHCN 08:13
PROVIDERS: PCP Family Medicine; Visit Provider Family Medicine
DX: I10 Essential (primary) hypertension (principal); E78.5 Hyperlipidemia, unspecified
CPT/HCPCS: 80053; 80061